=== PATIENT | male | born 1940 | race Caucasian/White ===

== ENCOUNTER 2021-03-22 12:46 | Emergency (ER) | payer MEDICARE ==
[~2021-03-22] VITALS: Ht 177.8 cm; Wt 95.3 kg
--- NOTE | ~2021-03-22 | EMS ---
[facility] [address] [place] [address] EMS Patient Care Report Name: EUNICE AMAYA [id number] Admission: 03/22/21 Attend Phys: Discharge: Date of : 36 Report #: [id number] THIS REPORT FOR: //name// Report Transmitted: 03/22/2021 12:41 EMS Care Summary [facility] Incident [id number] @ 03/22/2021 12:09 Incident Location [address] [place], [place] [id number] Patient EUNICE AMAYA Male, 80 Years 1940 Patient Address [address] [place] [id number] Patient History Parkinson's Disease,Unspecified dementia,Gastro-Esophageal Reflux Disease (GERD),Hypertension (HTN),Dysthymic disorder, Patient Allergies , Patient Medications Aspirin, Atorvastatin, Claritin, Lexapro, Famotidine, Tamsulosin, Chief Complaint Bleeding Disposition Transported No Lights/Warren Dispatch Reason No Other Appropriate Choice Transported To [facility] Narrative 80 Y O M C/O IT HURTING TO PEE. NURSE STATED THEY WENT IN TO CHANGE HIS BRIEF THIS MORNING AND IT HAD BLOOD IN IT AND THEY NOTICED HE WAS DRIPPING BLOOD FROM HIS PENIS, HE HAS A HISTORY OF DEMENTIA AND IS NORMALLY ALERT AND CONFUSED. PT [facility] [address] [place] [address] EMS Patient Care Report Name: EUNICE AMAYA Room: [facility]#: [id number] Admission: 03/22/21 Attend Phys: Discharge: Date of : 36 Report #: [id number] DENIED PAIN TO HEAD, NECK, BACK, CHEST, ABD, PELVIS, EXT, SOA AND LOSS OF CONSCIOUSNESS. PT FOUND SITTING IN HIS WHEELCHAIR A AND O X1, ABCS IN TACT HEENT GCS 14, PUPILS KLAUDIA, NO JVD, IN LINE TRAC CHEST = RISE AND FALL, - ACC MUSCLE USE ABD SOFT NON TENDER PELVIS IN TACT, - LOSS OF BLADDER/BOWEL EXT SMITH, LEIF, PULSES PRESENT, SKIN WARM, NORMAL COLOR AND MOISTURE TX: PRIMARY, SECONDARY, VITALS, PT STOOD AND SAT ON COT, 5 POINT [place], COT TO UNIT, PT TRANSPORTED TO [facility], REPORT AND CARE CONTINUED EN ROUTE, UPON ARRIVAL CARE TURNED OVER TO STAFF IN ER. Initial Vitals @12:22SpO2: 97, @12:22P: 70,R: 12,BP: 118/72, @12:34P: 66,R: 12,BP: 100/64, @12:22GCS: 14, @12:34GCS: 14, Assessments @12:19MENTAL:SKIN:HEENT:LUNG SOUNDS:ABDOMEN:PELVIS//GI:EXTREMITIES:PULSE:NEURO: Impression Urinary Tract Infection (UTI) Timeline 10:00,Call Received 12:09,Dispatch Notified 12:09,Psap Call 12:09,Dispatched 12:09,En Route 12:17,On Scene 12:19,At Patient 12:22,BP: / M,PULSE: ,RR: R,SPO2: 97 Ox,ETCO2: ,BG: ,PAIN: ,GCS: , 12:22,BP: 118/72 M,PULSE: 70,RR: 12 R,SPO2: Ox,ETCO2: ,BG: ,PAIN: ,GCS: , 12:22,BP: / M,PULSE: ,RR: R,SPO2: Ox,ETCO2: ,BG: ,PAIN: ,GCS: 14, 12:29,Depart Scene 12:34,BP: 100/64 M,PULSE: 66,RR: 12 R,SPO2: Ox,ETCO2: ,BG: ,PAIN: ,GCS: , 12:34,BP: / M,PULSE: ,RR: R,SPO2: Ox,ETCO2: ,BG: ,PAIN: ,GCS: 14, 12:41,At Destination 12:58,Call Closed Disclaimer v1.1 Copyright 2020 [employer] This EMS Care Summary contains data elements from the applicable legal record (which may be displayed differently). It is designed to provide pertinent information for the following purposes: continuity of care, clinical quality, [place] [address] EMS Patient Care Report Name: EUNICE AMAYA [id number] Admission: 03/22/21 Attend Phys: Discharge: Date of : 36 Report #: [id number] and state data reporting. The complete legal record is available to ED staff and administrators of the receiving hospital in ES's Patient Tracker. All data is provided "as is."
[2021-03-22] MEDS ORDERED: ASA81BEC PO (12:59)
[2021-03-22] MEDS ORDERED: SPIRONOLACTONE25 M1 PO (12:59)
[2021-03-22] MEDS ORDERED: LIPITOR10 MG PO (12:59)
[2021-03-22] MEDS ORDERED: FIBERCON625 M1 PO (13:00)
[2021-03-22] MEDS ORDERED: CLARITIN10 M3 PO (13:00)
[2021-03-22] MEDS ORDERED: D3-200050 MCG PO (13:00)
[2021-03-22] MEDS ORDERED: LEXAPRO 10 MG T10 M1 PO (13:00)
[2021-03-22] MEDS ORDERED: MAGNESIUM400 MG PO (13:01)
[2021-03-22] MEDS ORDERED: MAGNESIUM CITR100 M1 PO (13:01)
[2021-03-22] MEDS ORDERED: PEPCID40 MG PO (13:01)
[2021-03-22] MEDS ORDERED: NAMENDA 10 MG T10 MG PO (13:01)
[2021-03-22] MEDS ORDERED: FLOMAX0.4 MG PO (13:01)
[2021-03-22 13:46] LABS: ABSOLUTE EOSINOPHILS 0.5 thou/uL (0.0-0.7); ABSOLUTE LYMPHOCYTES 2.1 thou/uL (0.8-5.3); ABSOLUTE MONOCYTES 0.8 thou/uL (0.0-1.2); ABSOLUTE NEUTROPHILS 2.6 thou/uL (1.6-8.1); BASOPHILS 0.6 %; EOSINOPHILS 8.8 %; HEMATOCRIT 31.1 % (42.0-52.0); HEMOGLOBIN 10.3 gm/dL (14.0-18.0); LYMPHOCYTES 34.6 %; MCH 30.6 pg (26.0-34.0); MCV 92.5 fL (80.0-100.0); MONOCYTES 13.9 %; MPV 7.6 fl. (7.2-11.1); NUCLEATED RBCS 0 /100WBC; PLATELET COUNT* 240 thou/uL (150-400); POLYS 42.1 %; RBC 3.36 mil/uL (4.50-6.00); RDW-CV 14.6 % (10.5-14.5); WBC 6.1 thou/uL (4.0-11.0)
[2021-03-22 13:47] LABS: URINE BILIRUBIN NEGATIVE (Negative); URINE BLOOD 3+ (Negative); URINE CLARITY CLEAR; URINE COLOR YELLOW; URINE GLUCOSE-RANDOM NEGATIVE (Negative); URINE KETONES TRACE (Negative); URINE LEUKOCYTES-REFLEX NEGATIVE (Negative); URINE NITRITE-REFLEX NEGATIVE (Negative); URINE PROTEIN TRACE (Negative); URINE SPECIFIC GRAVITY >= 1.030 (1.005-1.030); URINE UROBILINOGEN 0.2 E.U./dl (0.2-1.0)
[2021-03-22 13:55] LABS: CALCIUM 8.3 mg/dL (8.5-10.1); CREATININE 1.5 mg/dL (0.6-1.3); POTASSIUM 4.2 mmol/L (3.5-5.1)
[2021-03-22 13:59] LABS: ALBUMIN 2.9 g/dL (3.4-5.0); TOTAL BILIRUBIN 0.3 mg/dL (<0.1-1.0); TOTAL PROTEIN 6.5 g/dL (6.4-8.2)
[2021-03-22 14:33] LABS: BACTERIA-REFLEX None Seen /HPF (None Seen); CASTS None Seen /LPF (None Seen); MUCUS 4-6 Moderate strn/LPF (None Seen); SQUAMOUS 0-3 Few /LPF (0-3); URINE WBC-REFLEX 0-5 Rare /HPF (0-5)
[2021-03-22 14:34] LABS: CRYSTALS None Seen /LPF (None Seen)
[2021-03-22 14:52] VITALS: BP 166/76
== END 2021-03-22 14:52 | disposition home or self-care (01) ==
LOC: M.ERS 12:46
PROVIDERS: Family Medicine
DX: N47.7 Other inflammatory diseases of prepuce (principal); R31.9 Hematuria, unspecified; R30.0 Dysuria; Z79.899 Other long term (current) drug therapy; Z79.82 Long term (current) use of aspirin; Z88.8 Allergy status to other drugs, medicaments and biological substances